=== PATIENT | female | born 1980 | race Caucasian/White ===

== ENCOUNTER 2022-02-11 08:00 | Outpatient (RCR) | payer OTHER, SELFPAY ==
--- NOTE | 2022-02-11 10:10 | BH.SGPN.GN ---
Behaviors/Verbalizations/Mental Status: []Eye contact is good. Motor activity is appropriate. Appearance is casual. Speech is Appropriate. Mood is dysthymic. Affect is constricted. Thoughts are linear and logical. No evidence of psychosis. Client Response/Progress/Benefit: []Pt was an active participant in group discussion and activity. Attentive during psychoeducation on social stigma vs self-stigma. Pt was actively involved in interactive discussion on the question of What impacts how we define and view ourselves? Pt along with peers were able to identify several aspects that impact how we view ourselves which include: society, past experiences, upbringing, guilt over past actions, shame, what we tell ourselves, and actions. Pt reported internal stigma has kept her from setting boundaries and setting personal goals. Benefited from increased awareness of how mental health stigma can impact individuals and treatment. Plan is to continue in IOP to increase healthy coping, improve daily functioning and prevent decompensation.
--- NOTE | 2022-02-12 09:10 | BH.SGPN.GN ---
Behaviors/Verbalizations/Mental Status: []Pt alert and oriented, casually dressed and groomed. Eye contact good. Motor activity appropriate. Speech within normal limits. Affect congruent, mood depressed and anxious. Thoughts linear, logical, no signs of hallucinations or delusions. Reviewed pt?s symptom tracker, no risk for suicidal ideation, plan, or intent as of 02/12/22 Client Response/Progress/Benefit: []Pt responded well to session, attentive and willing to provide supportive feedback to group. Pt reports feeling stagnant this morning as she is just starting her mental health treatment process and is having a hard time challenging her negative mindset. Discussed feeling overwhelmed by the amount of work she feels she still needs to do in order to make the progress she feels is necessary for her mental health. Expressed trying to remind herself each morning to take things one day at a time and set small goals for herself. Shared accomplishing a small goal to take a shower and trim her nails yesterday which she identified as personal progress. Appeared to benefit from supportive group environment. Pt will continue IOP tx to promote self-care, improve application of healthy coping and thought challenge skills, as well as improve daily functioning. Narrative Note: []
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
[2022-02-12 12:07] VITALS: BP 102/48; PULSE 65
--- NOTE | 2022-02-12 12:17 | BH.DR.ITP ---
Initial Treatment Plan Patient Information Visit Information: ADMISSION DATE: EXPECTED LOS: 4-6 weeks Problems/Symptoms Problem #1:: Mood instability Symptom:: Sadness, low motivation, apathy, hopelessness, guilt, hypersomnia, low energy, decreased concentration, fleeting, passive suicidal ideation Problem #2:: Anxiety Symptom:: Worry, rumination, panic attacks, hypervigilance, avoidance, flashbacks, nightmares
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
--- NOTE | 2022-02-13 14:20 | BH.MTP ---
Master Treatment Plan - Patient Information Program Physician:: Dr. Sewell Primary Therapist:: Wendy Maradiaga, [facility] - Psychiatric Diagnoses Psychiatric Diagnoses:: 1. Bipolar 1 disorder, most recent episode depression, severe without psychosis. 2. Generalized anxiety disorder. 3. PTSD. 4. Marijuana use disorder. 5. Nicotine use disorder Diagnosis Code(s):: F31.4 - Estimated LOS Estimated LOS (in weeks):: 6 Problem/Goal #1 - Problem/Goal #1 Stated Goal:: Client will increase mood stability, decrease depressive symptoms, and passive thoughts of due to Bipolar I disorder through Intensive Outpatient Program. Description of Barriers: Potential treatment barriers include: distorted thoughts, limited support, financial stress, negative thought patterns, low motivation, apathy, and low energy. Functional Impact: The patient is a 41-year-old female who will be next month and who has a history of mood instability and was referred to the IOP program at [facility] by her psychiatrist due to worsening depression and anxiety. She has had trouble holding down jobs because she is overwhelmed and is afraid of running into her if she leaves the house to go to work. Since the got out of group home the patient has had increased fear and has a heart had a hard time leaving the house. Client endorses depressed mood with low motivation, apathy, anhedonia, low energy, decreased concentration, erratic appetite, wanting to sleep throughout day, and feelings of hopelessness and guilt. Client reports being a worrier by nature and has daily panic attacks. Client reports feeling suicidal thoughts but denies active SI, plan or intention to date. - Objectives Objective #1 Stated Objective: Client will learn and utilize 2-3 healthy coping strategies and identify at least 2-3 negative self-talk messages used to reinforce feelings of worthlessness and replace thoughts with positive messages.?? Interventions: Therapist and group will utilize CBT techniques to assist client with understanding the connection between thoughts, feelings and behaviors. Education will be provided on behavioral activation. Therapist will assist client in learning internal coping strategies to manage depressive symptoms, along with helping client identify triggers. Through group and individual sessions client will identify distorted, negative beliefs about self and replace with more realistic, affirmative messages. Discharge Criteria: Client will have achieved this goal when can verbalize and has practiced at least 2 healthy coping strategies that successfully manage depressive symptoms. Client will also be able to verbalize at least 2 negative self-talk messages and effectively replace those thoughts with affirmative messages. Target Date: 03/25/22 Review Date: 03/12/22 Objective #2 Stated Objective: Pt will decrease depressive symptoms AEB pt?s score on the DSM 5 cross-cutting measure and improve pt?s daily functioning. Interventions: Through groups and individual therapy, pt will be provided with education on cognitive distortions, mistaken beliefs, and identifying and combating negative self-talk. Therapist will assist pt with getting back into the activities she once enjoyed as well as increasing healthy coping strategies. Discharge Criteria: Pt will have met this goal when pt?s score on the DSM 5 cross cutting measure for depression has been decreased and per pt?s report daily functioning has improved. Target Date: 03/25/22 Review Date: 03/12/22 Problem/Goal #2 - Problem/Goal #2 Stated Goal:: Client will reduce overall frequency, intensity, and duration of the anxiety so that daily functioning is not impaired.? Description of Barriers: Potential treatment barriers include: distorted thoughts, limited support, financial stress, negative thought patterns, low motivation, apathy, and low energy. Functional Impact: The patient is a 41-year-old female who will be next month and who has a history of mood instability and was referred to the IOP program at [facility] by her psychiatrist due to worsening depression and anxiety. She has had trouble holding down jobs because she is overwhelmed and is afraid of running into her if she leaves the house to go to work. Since the got out of group home the patient has had increased fear and has a heart had a hard time leaving the house. Client endorses depressed mood with low motivation, apathy, anhedonia, low energy, decreased concentration, erratic appetite, wanting to sleep throughout day, and feelings of hopelessness and guilt. Client reports being a worrier by nature and has daily panic attacks. Client reports feeling suicidal thoughts but denies active SI, plan or intention to date. - Objectives Objective #1 Stated Objective: Client will learn and implement 2-3 calming skills to reduce overall anxiety and manage anxiety symptoms. Interventions: Therapist and group sessions will help client identify physiological warning signs of anxiety, increase awareness of thoughts that increase anxiety, and identify behaviors that reinforce anxious symptoms. Group and individual counseling will teach client calming skills to help manage anxious symptoms. Discharge Criteria: Client will have achieved this goal when can verbalize at least 2 calming skills and reports skills successfully help reduce anxious symptoms. Target Date: 03/25/22 Review Date: 03/12/22 Objective #2 Stated Objective: Pt will decrease anxious symptoms AEB pt?s score on the DSM 5 cross-cutting measure improve pt?s daily functioning. Interventions: Through groups and individual therapy, pt will be provided education about anxiety?s impact on body and common physiological reaction to anxiety. Therapist will teach pt appropriate breathing techniques and build healthy coping skills to manage daily anxieties. Discharge Criteria: Pt will have met this goal when pt?s score on the DSM 5 cross cutting measure for anxiety has been decreased and per pt?s report daily functioning has improved. Target Date: 03/25/22 Review Date: 03/12/22
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
--- NOTE | 2022-02-18 09:05 | BH.SGPN.GN ---
Behaviors/Verbalizations/Mental Status: [] Eye contact is good. Motor activity is appropriate. Appearance is casual. Speech is Appropriate. Mood is euthymic. Affect is full. Thoughts are linear and logical. No evidence of psychosis. Reviewed daily check in sheet and no reports of suicidal ideations or intent. Client Response/Progress/Benefit: [] Pt was an active participant in group discussion. Attentive. Gave appropriate feedback. Emotion for today is excited. Daily symptom tracker notes 3/5 for depression/anxiety and 2/5 for anger. Pt was able to identify several mental health wins over the weekend. She worked on her goals to shower every day and read a book. I have showered 5 days in a row. She shared why these goals are beneficial to her mental health as she was not completing ADLs and would sleep throughout the day. She also is getting back to some positive self-care such as driving and listening to music. She believes that setting these daily small goals motivates her. She is utilizing opposite-action skills as well as thought reframing. Progress noted per pt report. Benefited from group support, encouragement, and feedback. Will continue in IOP to maintain safety, prevent decompensation, and improve functioning. Narrative Note: []
--- NOTE | 2022-02-18 10:10 | BH.SGPN.GN ---
Behaviors/Verbalizations/Mental Status: []Pt alert and oriented, neatly dressed and groomed. Eye contact good. Motor activity appropriate. Speech within normal limits. Affect congruent, mood euthymic. Thoughts linear, logical, no signs of hallucinations or delusions. Client Response/Progress/Benefit: []Pt was an engaged participant AEB pt listening attentively to others. Attentive during psychoeducation on communication styles. Assisted group with identifying barriers of effective communication which included: ?dropping hints,? texting, assumptions, yelling, and hurtful language. Pt identified they most often use passive-aggressive communication. Pt reports being passive-aggressive impacts pt by creating more conflict and pt's needs not getting met. Benefited from increased awareness of different communication barriers, styles, and the importance of communicating effectively to improve mental wellness. Will continue IOP tx to prevent decompensation, gain healthy coping skills, and reduce avoidance. Narrative Note: []
--- NOTE | 2022-02-19 10:10 | BH.SGPN.GN ---
Behaviors/Verbalizations/Mental Status: []Pt alert and oriented, casually dressed and groomed. Eye contact good. Motor activity appropriate. Speech within normal limits. Affect constricted, mood euthymic. Thoughts linear, logical, no signs of hallucinations or delusions. Client Response/Progress/Benefit: []Pt responded well to session AEB taking notes throughout and listening attentively to others. Pt was attentive throughout group activity identifying famous individuals and how they overcame failure to be successful. Pt helped group identify how fear of failure can impact mental health and relationships. Pt personally identified it can keep people in unhealthy relationships and feel stuck. Pt participated in experiential activity, working with group members to problem solve. Appeared to benefit from increased knowledge of fear of failure. Will continue IOP tx to increase emotional regulation skills, improve work-related functioning, and reduce negative thinking patterns. Narrative Note: []
--- NOTE | 2022-02-19 10:20 | BH.MDN_ITS ---
Multi-Disciplinary Note - Note 60-min Individual Time Started:: 09:00 Date: 02/19/22 Purpose of session/treatment goals addressed:: Purpose of session was to address goals 1 and 2 from MTP. Eye Contact:: Good Motor Activity:: Appropriate Appearance:: Casual Speech:: Appropriate Mood:: Euthymic, Anxious Affect:: Congruent Thoughts:: Linear, Logical, No evidence of hallucinations/delusions noted Staff Interventions:: CBT techniques, rapport building, strengths perspective, goal setting, taught coping skills Client Response:: Client reported she did accomplish goal of showering 5 of 7 days. Client stated she did find benefit to having a personal hygiene routine of showering, putting in contacts and brushing teeth. Client reported she did not accomplish goal of working on her raised garden bed. Client stated there were things that popped up over the weekend she forgot about and didn't have any time. Client reported she did talk with her neighbor and asked to borrow some garden tools. Client stated she did get a job at [employer] in which she starts next Thursday. Client reported she is feeling excited because she will be making money to help cover bills and gas. Client stated her schedule will be every Thursday, Thursday and Thursday from 4pm to close. Client reported she does feel anxious that she won't be able to keep up with the pace especially with her leg pain. Client stated having a set schedule she believes will be helpful. 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 Client stated she is hopeful this will be positive for her. Client reported her mood has slightly improved in the last week with slight improvement in motivation. Client stated she continues to struggle with getting house work done. Client reported she did make a list yesterday of chores to be done. Connected with strategy of chunking tasks into more manageable parts. Client stated her goal for the week is to nap every other day versus every day. Client reported she has been napping 3 hours everyday when feeling bored. Recognizes the napping gets in the way of accomplishing tasks and being active. Client reported she also wants to work on her raised garden bed. Risks/Concerns:: Denies suicidal ideation, plan or intention to date. future focused Progress Toward Goals/Plan:: Progress noted with client reporting improved mood and slight increase in her motivation. Client reported being able to accomplish chore of putting dishes away, taking out trash and cleaning out the litter box es. Client stated she'd like to decrease how much she is napping so she can be more productive and spend more time doing thing she enjoys like coloring outside. Client to continue IOP to increase healthy coping skills, challenge distorted thoughts and prevent decompensation. Time Stopped:: 10:05
--- NOTE | 2022-02-19 11:15 | BH.SGPN.GN ---
Behaviors/Verbalizations/Mental Status: []Pt alert and oriented, casually dressed and groomed. Eye contact good. Motor activity appropriate. Speech within normal limits. Affect congruent, mood euthymic. Thoughts linear, logical, no signs of hallucinations or delusions. Client Response/Progress/Benefit: []Pt responded well to session, engaged in the experiential activity and attentive throughout group processing. Pt reported fear of failure has kept pt from having relationships that are healthy, keeping a job, and following through with commitments. Pt completed fear of failure worksheet and was able to identify thoughts and behaviors that reinforce personal fear of failure including lack of boundaries, fear of vulnerability, not taking her meds, and avoidance. Pt participated in small group discussion regarding strategies to overcome fear of failure. Identified wanting to work on setting small boundaries and working on accepting small wins. Appeared to benefit from increased knowledge of strategies to combat fear of failure and gaining self-awareness. Pt will continue IOP tx to improve work-related functioning, increase self-confidence, and reduce intensity of symptoms. Narrative Note: []
--- NOTE | 2022-02-20 09:05 | BH.SGPN.GN ---
Behaviors/Verbalizations/Mental Status: [] Eye contact is good. Motor activity is appropriate. Appearance is casual. Speech is Appropriate. Mood is anxious. Affect is congruent. Thoughts are linear and logical. No evidence of psychosis. Reviewed daily check in sheet and no reports of suicidal ideations or intent. Client Response/Progress/Benefit: [] Pt was an active participant in group discussion. Attentive. Provided appropriate feedback. Emotion for today is overwhelmed. Daily symptom tracker shows 3/5 for anxiety and 2/5 for depression. Mental health win today is I made it here. She shared obstacles and struggles this AM to getting to [facility]. She is planning to start a job next week which in the past has been difficult due to MH. Increased anxiety recently due to onboarding issues with her new employer. She believes that she has set herself up for success with this job as it's conducive to her schedule and allows her time to care for daughter during the weekdays. She is fearful, excited, anxious, and overwhelmed with this significant changes. Difficult not to focus on past struggles with maintaining a job. She feels that her mental health is more stable this time around I'm doing OK and I' m feeling better. Progress noted per pt report. Benefited from group support, encouragement, and feedback. Will continue in IOP to prevent decompensation, increase healthy coping, and improve functioning. Narrative Note: []
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
== END 2022-02-20 23:59 ==
LOC: BHIOP 08:00
PROVIDERS: PCP Family Medicine; Referring Provider Psychiatry & Neurology Psychiatry; Visit Provider Psychiatry & Neurology Psychiatry
DX: F31.4 Bipolar disorder, current episode depressed, severe, without psychotic features (principal); F41.1 Generalized anxiety disorder; F43.10 Post-traumatic stress disorder, unspecified; F12.99 Cannabis use, unspecified with unspecified cannabis-induced disorder; F17.210 Nicotine dependence, cigarettes, uncomplicated; Z91.51 Personal history of suicidal behavior; Z79.899 Other long term (current) drug therapy
CPT/HCPCS: 90792; H2012; H2020; S9480; T1002; 90834; 90837

== ENCOUNTER 2022-02-21 07:26 | Outpatient (RCR) | payer OTHER, SELFPAY ==
[2022-02-21 00:50] VITALS: BP 102/48; PULSE 65
--- NOTE | 2022-02-25 09:05 | BH.SGPN.GN ---
Behaviors/Verbalizations/Mental Status: [] Eye contact is poor. Motor activity is appropriate. Appearance is casual. Speech is normal. Mood is depressed. Affect is flat. Thoughts are linear and logical. No evidence of psychosis. Reviewed daily check in sheet and no reports of suicidal ideations or intent. Client Response/Progress/Benefit: [] Pt was an active participant in group discussions. Attentive. Emotion for today is gloomy. Daily symptom tracker notes 3/5 for depression, anxiety, and irritability. Mental health win was getting here today Reports depression, low energy, and low motivation this AM. I wanted to go back home but I didn't. No specific trigger to worsening depression. Group provided feedback, support, and empathy. Discussion on the benefits of opposite action in times of depression and lack of motivation as sometime action can lead to motivation. Will continue in IOP to prevent decompensation, increase healthy coping strategies, and to stabilize mood. Narrative Note: []
--- NOTE | 2022-02-25 10:10 | BH.SGPN.GN ---
Behaviors/Verbalizations/Mental Status: []Client alert and oriented, casually dressed and groomed. Eye contact good. Motor activity appropriate. Speech within normal limits. Affect congruent, mood euthymic. Thoughts linear, logical, no signs of hallucinations or delusions. Client Response/Progress/Benefit: [] Client responded well to session AEB sharing and listening attentively to others. Client indicated struggle with utilizing supports due to feeling like a burden to others. Clinician provided psychoeducation on types of support including internal and external support, with client identifying co workers as possible supports. Client participated in experiential activity illustrating the importance of having multiple social supports. Client provided supportive feedback and problem solving throughout group activity. Client participated in group processing of the activity. Client appeared to benefit from increased knowledge of the benefits of social support and greater self-awareness. Will continue IOP treatment with possible discharge this week to continue increasing application of healthy coping skills and decreasing negative self-talk to improve daily functioning. Narrative Note: []
--- NOTE | 2022-02-25 11:10 | BH.SGPN.GN ---
Behaviors/Verbalizations/Mental Status: [] []Client alert and oriented, casually dressed and groomed. Eye contact good. Motor activity appropriate. Speech within normal limits. Affect congruent, mood euthymic and anxious. Thoughts linear, logical, no signs of hallucinations or delusions Client Response/Progress/Benefit: [] Client was an active participant throughout AEB contributing to discussion, providing personal examples, and taking notes. Client processed emotions she felt in the activity and how she coped in the moment with indicating high stress during group due to challenge of working together. She provided input during discussion on the types of support our supports can provide. Client was able to identify current support system and barriers that get in the way of using supports. Client stated she struggles most with emotinal and informational support with plans to find more resources to build on her supports.Connected impact this can have on her mental health. Client seemed to benefit from identifying the type of support she needs to work on improving. Client recommended to continue IOP to continue use of healthy coping, challenge distorted thoughts and prevent decompensation. Narrative Note: []
--- NOTE | 2022-02-26 09:00 | BH.SGPN.GN ---
Behaviors/Verbalizations/Mental Status: []Pt alert and oriented, casually dressed and groomed. Eye contact good. Motor activity appropriate. Speech within normal limits. Affect congruent, mood tired and euthymic. Thoughts linear, logical, no signs of hallucinations or delusions. Reviewed pt?s symptom tracker, no risk for suicidal ideation, plan, or intent as of 02/26/22 Client Response/Progress/Benefit: []Pt responded well to session, attentive and providing support. Pt reports feeling exhausted this morning due to having nightmares last night. Pt shared a positive is that I finally slept through the night but unfortunately the sleep was disrupted. Pt reports getting to IOP today is a win as pt was tired and wanted to lay in bed. Pt shared coming to group is helpful though, so pt is glad she used opposite action. Pt appeared to benefit from connecting with peers. Pt will continue IOP tx to promote mood stability, improve daily functioning, and reduce negative thinking patterns. Narrative Note: []
--- NOTE | 2022-02-26 10:10 | BH.SGPN.GN ---
Behaviors/Verbalizations/Mental Status: [] Client alert and oriented, neatly dressed and groomed. Eye contact good. Motor activity appropriate. Speech within normal limits. Affect congruent, mood euthymic. Thoughts linear, logical, no signs of hallucinations or delusions. Client Response/Progress/Benefit: [] Client was an active participant in group discussions. Attentive during psychoeducation on 4 types of conflict styles (Competing, Collaborating, Avoiding, and Accommodating). Worked with group to define conflict and identify how conflict is helpful. With peers identified barriers to addressing or managing conflict which included: fear of upsetting others, fear of the outcome, and feeling vulnerable. Client shared How politics can cause conflict and gave insight on pros and cons of each conflict resolution styles. Benefited from group due to increase insight and awareness of benefits to conflict, conflict styles, and obstacles to managing conflict. Will continue in IOP to prevent decompensation, gain healthier core beliefs, and increase overall functioning. Narrative Note: []
--- NOTE | 2022-02-26 11:15 | BH.SGPN.GN ---
Behaviors/Verbalizations/Mental Status: []Client alert and oriented, neatly dressed and groomed. Eye contact good. Motor activity appropriate. Speech within normal limits. Affect congruent, mood euthymic, Thoughts linear, logical, no signs of hallucinations or delusions. Client Response/Progress/Benefit: [] Client engaged in session AEB contributing to discussion and engaging in activity. Client did well to review current conflict style and its impact on mental health with identifying herself a cooperative in her conflict resolution style with indicating she had to get there from experiences in the past with communicating. Attentive and taking notes during discussion on strategies for more effectively managing conflict in personal life. client participated in activity and did well to be assertive and collaborating. client given handout on fair fighting rules. Appeared to benefit from gaining strategies to help client better manage conflict. Will continue IOP tx to reduce cognitive distortions and improve overall functioning. Narrative Note: []
--- NOTE | 2022-02-27 09:05 | BH.SGPN.GN ---
Behaviors/Verbalizations/Mental Status: [] Eye contact is good. Motor activity is appropriate. Appearance is casual. Speech is appropriate. Mood is depressed. Affect is flat. Thoughts are linear and logical. No evidence of psychosis. Reviewed daily check in sheet and no reports of suicidal ideations or intent. Client Response/Progress/Benefit: [] Pt was an active participant in group discussion. Attentive. Daily symptom tracker notes 3/5 for depression, anxiety, and anger. Emotion for today is regretful. Mental health wins include cooking dinner and challenging unrealistic expectations. She gave examples were she recently challenged her negative automatic thoughts. She is hopeful about her upcoming part-time job and is attempting reframe thoughts and focus on the benefits of having a job. She has struggles to maintain employment due to her mental health. Continues to report depression, negative thoughts, and anxiety. Continues to ruminate extensively mostly when triggered. Limited progress per pt report. Benefited from group support, encouragement, and feedback. Will continue in IOP to maintain safety, increase healthy coping, and to improve functioning. Narrative Note: []
--- NOTE | 2022-02-27 10:20 | BH.SGPN.GN ---
Behaviors/Verbalizations/Mental Status: [] Eye contact is good. Motor activity is appropriate. Appearance is casual. Speech is Appropriate. Mood is full. Affect is euthymic. Thoughts are linear and logical. No evidence of psychosis. Client Response/Progress/Benefit: [] Pt was an active participant in group discussion. Attentive during psychoeducation on Problem-Solving in the Moment Protocol. Participated in group experiential activity. Pt provided feedback during interactive group discussion in which pt and peers worked through an example of a problem (Managing Anxiety) in which they identified a goal (minimizing anxiety) and identified barriers. Barriers identified included lack of awareness, mental health stigma, distorted thinking, not having the tools/resources, and being afraid to fail. During the experiential activity pt worked with peers to problem solve using the Problem Solving in the Moment Protocol. Group was able to complete the activity and pt was able to practice in the moment problem-solving and make connections between problem-solving for activity and in real-life situations. Increased awareness of problem-solving strategies. Will continue in IOP to maintain safety, prevent decompensation, and improve functioning. Narrative Note: []
--- NOTE | 2022-02-27 11:20 | BH.SGPN.GN ---
Behaviors/Verbalizations/Mental Status: []Pt alert and oriented, casual dress, hygiene tended to. Eye contact good. Motor activity WNL. Speech appropriate rate and tone. Affect congruent, mood euthymic. Thoughts linear, logical, no signs of hallucinations or delusions. Client Response/Progress/Benefit: []Pt engaged in session as evidenced by pt listening to others and providing input throughout. Pt practiced in the activity and expressed feeling frustration and anxious, but pt was able to cope by listening and problem-solving with peers. Pt identified a goal pt wants to work on which is schedule 20 minutes a day for self-care. Pt?s barriers included boredom, other tasks, childcare, and negative thinking. Pt also identified steps she could take such as making a fun list, stretching, making a tentative to-do list, and giving herself positive self-talk every day. Pt seemed to benefit from learning about problem solving method and rehearsing problem-solving skills in the moment. Pt will continue IOP tx to promote mood stability, increase emotional regulation skills, and improve work-related functioning. Narrative Note: []
--- NOTE | 2022-02-28 15:29 | BH.MDN_ITS ---
Multi-Disciplinary Note - Note 45-min Individual Time Started:: 13:38 Date: 02/28/22 Purpose of session/treatment goals addressed:: Purpose of session was to address goals 1 and 2 from MTP. Eye Contact:: Good Motor Activity:: Appropriate Appearance:: Casual Speech:: Appropriate Mood:: Anxious Affect:: Congruent Thoughts:: Linear, Logical, No evidence of hallucinations/delusions noted Staff Interventions:: thought challenging, CBT techniques, mindfulness skills, strengths perspective, taught coping skills Client Response:: Client reported she is having worries that she won't be able to maintain her new job that she starts today. Client stated started to have anxious thoughts a few days ago that this new job will be too much. Client reported she's worried her pain will be too much to handle, especially since she is working 3 days in a row. Client receptive to working with therapist to challenge negative and anxious thoughts. Client agreed anxiety can make a situation worse before even get to the stressor. Client stated the reasons she wants a job is to help with financial issues which would help decrease stress. Discussed strategies can use while at work to manage her mood. Discussed importance of self-care following her shift and relaxation during days she is off. Client reported this morning she used her anxiety for good by focusing on being productive. Client stated she got her dishes done, couple loads of laundry, and cleaned litter boxes. Client reported felt positive to be able to accomplish some things. Client reported she has been decreasing how much she naps recently. Client expressed sadness that she recently had a relationship end and is missing that connection. Client agreed increasing social support would be helpful. Client agreed with therapist getting back into journaling can be helpfu l to manage anxious thoughts. Client Risks/Concerns:: Denies suicidal ideation, plan or intention to date. future focused. children identified as protective factor. Progress Toward Goals/Plan:: Client noted increased anxiety due to starting new job tonight. Progress noted with client being able to be productive despite feeling anxious today. Client also reporting decreased napping to decrease avoidance. Client having increased anxious thoughts about not being able to succeed at her new job this weekend. Client open to challenging distorted thou ghts and reviewed skills that can help her manage in the moment. Client to continue IOP to increase healthy coping, challenge distorted thoughts and prevent decompensation. Time Stopped:: 14:28
--- NOTE | 2022-03-04 09:05 | BH.SGPN.GN ---
Behaviors/Verbalizations/Mental Status: [] Eye contact is good. Motor activity is appropriate. Appearance is casual. Speech is Appropriate. Mood is depressed. Affect is flat. Thoughts are linear and logical. No evidence of psychosis. Reviewed daily check in sheet and pt reports 1/5 for suicidal ideations and 0/5 for intent. Client Response/Progress/Benefit: [] Pt participated at times during the group discussion. Attentive. Daily symptom tracker notes 3/5 for anxiety/depression. Emotion for today is excited mainly due to plans to go to an amusement park with daughter this afternoon. [employer] was starting her job this weekend and making it through 3 days. I'm not sure how long this will last. She talked about the mental health and physical obstacles that she encountered while working stating I pushed through it. Benefited from group support, encouragement, and feedback. Will continue in IOP to maintain safety, increase healthy coping, and improve functioning. Narrative Note: []
--- NOTE | 2022-03-04 10:15 | BH.SGPN.GN ---
Behaviors/Verbalizations/Mental Status: [] Eye contact is good. Motor activity is appropriate. Appearance is casual. Speech is Appropriate. Mood is depressed. Affect is full. Thoughts are linear and logical. No evidence of psychosis. Client Response/Progress/Benefit: [] Pt was an active participant in group discussions. Attentive during psychoeducation. Participated in experiential activity. Pt participated in interactive discussion on the consequences of unhealthy expression of emotions. Pt along with peers identified several consequences which included; judgement from others, can push people away, people will keep information from us for fear we cannot handle it, we are perceived as angry or crazy, impacts our ability to effectively communicate. Pt also participated in interactive discussion on common potholes to effectively communicating which included; not focusing on topic at hand, too many issues/concerns at once, assumptions, jumping to conclusions, sarcasm, listening only to respond, and mental health struggles. Pt was able to relate and make connections between the experiential activity and the overall topic. Benefited from increased awareness of how stress and emotions can impact one's ability to communicate. Will continue in IOP to maintain safety, prevent decompensation, increase coping skills, and improve functioning. Narrative Note: []
--- NOTE | 2022-03-04 11:10 | BH.SGPN.GN ---
Behaviors/Verbalizations/Mental Status: []Pt alert and oriented, neatly dressed and groomed. Eye contact good. Motor activity appropriate. Speech within normal limits. Affect congruent, mood anxious. Thoughts linear, logical, no signs of hallucinations or delusions. Client Response/Progress/Benefit: []Pt engaged in session AEB client listening attentively to peers and providing input. Attentive during psychoeducation on 4 zones of regulation. Pt able to identify feelings and behaviors for each zone. Pt identified coping skills one can use to support self in each zone. Pt stated belief that pt is in the yellow zone today as pt feels anxious, excited, and nervous. Pt reports practicing grounding skills and looking into ASMR will help pt manage emotions today. Benefited from increased education on zones of regulation or stages of alertness for emotions and healthy coping skills to use for each zone. Pt will continue IOP tx to improve work-related functioning, improve interpersonal effectiveness skills, and increase application of healthy coping skills. Narrative Note: []
--- NOTE | 2022-03-05 09:00 | BH.SGPN.GN ---
Behaviors/Verbalizations/Mental Status: [] Eye contact is good. Motor activity is appropriate. Appearance is casual. Speech is Appropriate. Mood is anxious. Affect is congruent. Thoughts are linear and logical. No evidence of psychosis. Reviewed daily check in sheet and pt reports 1/5 for suicidal thoughts, and 0/5 for intent. Client Response/Progress/Benefit: [] Pt was an active participant in group discussions. Attentive. Provided appropriate feedback. Emotion for today is anxious. Shared that she has been mopy and weepy all morning. Stated that her emotions crashed today. I'm just existing and taking up space. While venting to the group she was able to identify triggers and stressors which may be impacting her mood. When asked what she could do to help she stated coming here today. Urge to stay at home and sleep or isolate was strong. Utilized opposite action to get here today because I knew it would help. Benefited from group support, encouragement, and feedback. Will continue in IOP to maintain safety, prevent decompensation, and increase healthy coping. Narrative Note: []
--- NOTE | 2022-03-05 10:05 | BH.SGPN.GN ---
Behaviors/Verbalizations/Mental Status: [] Client alert and oriented, casually dressed and groomed. Eye contact good. Motor activity appropriate. Speech within normal limits. Affect congruent, mood euthymic. Thoughts linear, logical, no signs of hallucinations or delusions. Client Response/Progress/Benefit: [] Client was an active participant in activity and taking notes during group discussion. Attentive during psychoeducation on coping skills, why people use unhealthy coping skills, and how to replace unhealthy coping skills. Client shared negative coping skills of shutting down,not doing self care, and sex. Benefited from increased understanding of unhealthy coping skills and the need for developing healthy internal and external coping skills. . Client will continue IOP tx to prevent decompensation,increase management depressive symptomatology, and increase overall functioning. Narrative Note: []
--- NOTE | 2022-03-05 11:05 | BH.SGPN.GN ---
Behaviors/Verbalizations/Mental Status: [] Client alert and oriented, neatly dressed and groomed. Eye contact fair to good. Motor activity appropriate. Speech within normal limits. Affect congruent, mood euthymic. Thoughts linear, logical, no signs of hallucinations or delusions. Client Response/Progress/Benefit: [] Client responded well to session AEB taking notes and providing input and examples throughout. Group discussed the different categories of coping skills which included distraction, emotional release, grounding, self-love, and thought challenging. Client created a coping skill menu identifying various skills to try in each category. Client's coping skill menu included: read more, journal, guided mediation, validating feelings, and practice affirmation. Appeared to benefit from increasing repertoire of healthy coping skills. Client will continue IOP tx to improve daily functioning, reduce negative thinking, and increase application of healthy coping skills. Narrative Note: []
--- NOTE | 2022-03-05 11:40 | PCM.BH.PN ---
Progress Note Progress Note: And history of Present Illness/Interim History: [] The patient is a 41-year-old female with a history of mood instability who is seen in follow-up at the [facility] IOP program. I last saw the patient 3 weeks ago and at that time her resulting dose was increased to 2 mg daily. The patient has been compliant with her medication and has been taking it every day and tolerating it well. According to the staff the patient has had consistent attendance and seems to be engaged in treatment. She feels she is learning valuable skills in the IOP program which are helping her deal with her mental health issues. She feels she is a little better but the patient says that the last few days and even the last few weeks she feels she is still up-and-down a lot. She has a new job at [employer] and has worked 3 days there but it was very hard for her to do this. She is getting more done at home but has a lot more to do. She is enjoying coloring now and denies complete anhedonia. She still feels hopeless at times but she states that she knows it will get better. She is having panic attacks maybe once a day now. She was able to go to [place] yesterday with her daughter and she did have some enjoyment while at [place] but she says that still she was not able to stay there very long. She feels that overall her mood is slightly better. She is still afraid of running into her and is still using her marijuana daily. She denies any suicidal ideation at all now. She does have occasional thoughts that she would not care if she did not wake up but she feels that overall she does want to live because her children are protective from her killing herself or wanting to . She denies plan for suicide, homicidal ideation, hallucinations, delusions or jayla symptoms. Current Psychiatric Medications: [] Resulting 2 mg p.o. daily (x3 weeks); Viibryd 40 mg p.o. daily; gabapentin 100 mg 3 times daily added recently for nerve pain by her outpatient provider. Mental Status Examination: [] The patient is a 41-year-old female who appears normal for stated age and is casually dressed and groomed with good hygiene. She is cooperative during the interview and is ambulatory with a normal gait. She has no psychomotor agitation or retardation. Eye contact is good and speech is normal rate and rhythm and fluent with no pressure. Mood is depressed. Affect is constricted. Thought process is goal-directed and organized. Thought content: There is evidence of some thoughts that of passive but there is no evidence of suicidal ideation, plan for suicide, homicidal ideation, hallucinations or delusions. Reality testing is intact. Intelligence is average or above. Judgment is intact. Insight: Limited but improving. Impulsivity: Moderate to high Diagnoses: [] 1. Bipolar 1 disorder, most recent episode depression, severe without psychosis (F31.4) 2. Generalized anxiety disorder 3. PTSD 4. Marijuana use disorder 5. Nicotine use disorder 6. Primary support, work and financial issues Plan: [] The patient will continue the IOP program at [facility] as the structure, support, education and group therapy will hopefully prevent worsening of the patient's symptoms which could require hospitalization. She felt safe during the interview and if it anytime she does not feel safe she will let us know or go to the emergency room. The risks, options, possible complications and side effects of the medications were again discussed with the patient and she understands accepts these. The patient will continue to try to decrease her marijuana use. Her resulting dose was increased to 3 mg p.o. daily due to the patient feeling that she has had minimal improvement in control of her moods and her depression. Prescription was sent in for this. She will continue to follow-up with her outpatient psychiatric and medical providers and I will see the patient in follow-up in 2 weeks.
--- NOTE | 2022-03-05 15:16 | BH.TPR ---
Treatment Plan Review Date of Admission:: 02/11/22 Date of Treatment Plan Review:: 03/05/22 Admitting Diagnoses:: 1. F31.4 Bipolar 1 disorder, most recent episode depression, severe without psychosis. 2. Generalized anxiety disorder. 3. PTSD. 4. Marijuana use disorder. 5. Nicotine use disorder Current Diagnoses:: 1. Bipolar 1 disorder, most recent episode depression, severe without psychosis (F31.4). 2. Generalized anxiety disorder. 3. PTSD. 4. Marijuana use disorder. 5. Nicotine use disorder Patient's Response to Treatment:: Client has responded well to session AEB client consistently attending IOP sessions, active participant group discussions and receptive during individual sessions. Status of Current Problems and Symptoms: Ongoing problems. Client believes she is learning valuable skills in the IOP program which are helping her deal with her mental health issues. She feels she is a little better but the patient says that the last few days and even the last few weeks she feels she is still up-and-down a lot. She has a new job at [employer] and has worked 3 days there but it was very hard for her to do this. She is getting more done at home but still not back to baseline. She is enjoying coloring now and denies complete anhedonia. She still feels hopeless at times but she states that she knows it will get better. She is having panic attacks maybe once a day now, which is a decrease compared to three weeks ago. She was able to go to [place] yesterday with her daughter and she did have some enjoyment while at [place] but she says that still she was not able to stay there very long. She feels that overall her mood is slightly better. She is still afraid of running into her and is still using her marijuana daily. Problem #1 Problem Name:: mood instability Status of Goals:: Obj 1 - not met. Client is able to identify healthy coping skills of art, journaling, getting out of the house, and opposite action. Client has increased awareness of her negative thought patterns but struggles with independently challenging distorted thoughts. Obj 2 - partially met. Client's DSM 5 scores at review indicate a 50% decrease in depressive symptoms. Client's jayla symptoms indicate a 33% increase in symptoms at review. Team Recommendations:: Team recommends client continue current goal and objectives to increase consistent use of skills and show stability. Problem #2 Problem Name:: Anxiety Status of Goals:: Obj 1 - partially met, ongoing work encouraged. Client is able to identify calming skills like belly breathing, paced breathing, coloring, 5 senses and other grounding tools. Client does struggle with using these skills in the moment. Obj 2 - partially met, ongoing work encouraged. Client's DSM 5 scores at review indicate a 18% decrease in anxiety. Client continuing to struggle with trauma triggers and hypervigilance since her soon to be ex- was released from [facility] in August. Client has upcoming divorce case in a couple weeks which also seems to be contributing to increased anxiety. Team Recommendations:: Team recommends client continue current goal and objectives to increase consistent use of skills and show stability. Focus on building grounding tools to help with trauma response when worries about seeing her soon to be ex-.
--- NOTE | 2022-03-06 09:01 | BH.SGPN.GN ---
Behaviors/Verbalizations/Mental Status: []Eye contact is fair. Motor activity is appropriate. Appearance is casual. Speech is Appropriate. Mood is dysthymic. Affect is congstricted. Thoughts are linear and logical. No evidence of psychosis. Reviewed daily check in sheet and no reports of suicidal ideations or intent. Client Response/Progress/Benefit: []Client responded well to session AEB listening attentively to others and providing feedback and thoughts to group. Client reported mental health positive as making it to IOP today despite having rough morning and wanting to stay home. Client stated using opposite action and reminding self of benefits of going to IOP as skills that helped her get to IOP today. Client stated additional positive as asking for help from her mom. Client stated stressor was having a rough morning. Seemed to benefit from peer support and expressing thoughts. Client to continue IOP to consistently apply healthy coping skills, challenge negative thoughts and prevent decompensation.
--- NOTE | 2022-03-06 10:10 | BH.SGPN.GN ---
Behaviors/Verbalizations/Mental Status: [] Eye contact is good. Motor activity is appropriate. Appearance is casual. Speech is Appropriate. Mood is depressed. Affect is full. Thoughts are linear and logical. No evidence of psychosis. Client Response/Progress/Benefit: [] Pt was an active participant in group discussion. Attentive during psychoeducation and participated in group activity. Participated in interactive group discussion on internal and external barriers to mental health progress. Group identified examples of internal barriers as; negative thoughts, anxiety, cognitive distortions, and past experiences. External barriers identified were toxic people, lack of support/resources, stressful work, and housing issues. Pt teresa a picture of her current reality which depicted her on a road with a lot of stressors. hanging over her including divorce and boredom. Feels stuck however more hopeful in the past few weeks. Her desired reality has her working from home, maintaining her boundaries, having support, and taking care of herself. Benefited from increased awareness of current barriers to progress as well as current/desired realities. Plan is to continue in IOP to maintain safety, prevent decompensation, increase healthy coping, and improve functioning. Narrative Note: []
--- NOTE | 2022-03-06 11:15 | BH.SGPN.GN ---
Behaviors/Verbalizations/Mental Status: []Pt alert and oriented, casually dressed and groomed. Eye contact good. Motor activity appropriate. Speech within normal limits. Affect constricted, mood anxious. Thoughts linear, logical, no signs of hallucinations or delusions. Client Response/Progress/Benefit: []Pt engaged during activity, encouraging peers and contributed as group brainstormed ideas on how to cope with internal barriers that keep pts stuck from moving towards goals. Able to identify barriers to desired reality. Identified barriers to current reality to include: isolation, not being present or enjoying things, and negative self-talk. Pt wants to work on overcoming the barrier of not being present and enjoying things by using grounding skills and challenging negative thinking. Benefited from group by identifying obstacles and solutions to desired reality.? Pt will continue IOP tx to reduce negative thinking patterns and self-sabotage, improve work-related functioning, and increase healthy support. Narrative Note: []
--- NOTE | 2022-03-11 09:00 | BH.SGPN.GN ---
Behaviors/Verbalizations/Mental Status: []Pt alert and oriented, casually dressed and groomed. Eye contact good, motor activity appropriate, speech WNL. Affect congruent, mood euthymic. Thoughts linear, logical, no signs of hallucinations or delusions. No risk reported on pt's daily symptom tracker. Client Response/Progress/Benefit: []Pt responded well to session, attentive and contributing ideas. Pt reports feeling hopeful this morning as pt quit her job at [employer] as pt felt like it was not a good fit and now pt will have more time to focus on her mental health. Pt shared she spent time with her mother over the weekend and spent time using opposite action. Pt also practiced mindfulness and gratitude to acknowledge the beauty around me. Pt appeared to benefit from reflecting on her positives and connecting with others. Pt will continue IOP tx to improve overall mood stability, reduce avoidance, and reduce the use of self-sabotaging behaviors. Narrative Note: []
--- NOTE | 2022-03-11 10:10 | BH.SGPN.GN ---
Behaviors/Verbalizations/Mental Status: [] Eye contact is good. Motor activity is appropriate. Appearance is casual. Speech is Appropriate. Mood is euthymic. Affect is congruent. Thoughts are linear and logical. No evidence of psychosis. Client Response/Progress/Benefit: [] Client responded well to session AEB sharing and listening attentively to others. Client participated in group discussion defining boundaries and why having healthy boundaries is important. Client shared importance of setting boundaries in the workplace as well. Client appeared to connect to psychoeducation on types of boundaries, including physical, emotional, and intellectual. Client listened attentively and nodding throughout discussion in which group members shared personal examples of different types of boundaries. Client appeared to benefit from increased knowledge of the types of boundaries and increased self-awareness of personal boundaries. Will continue IOP treatment to increase depression management skills and independent coping skills to improve daily functioning. Narrative Note: []
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
--- NOTE | 2022-03-12 09:00 | BH.SGPN.GN ---
Behaviors/Verbalizations/Mental Status: []Pt alert and oriented, casually dressed and groomed. Eye contact good. Motor activity appropriate. Speech within normal limits. Affect congruent, mood euthymic. Thoughts linear, logical, no signs of hallucinations or delusions. Reviewed pt?s symptom tracker, no risk for suicidal ideation, plan, or intent. Client Response/Progress/Benefit: []Client responded well to session AEB client listening attentively to peers and sharing thoughts and feelings. Client reported mental health positive as getting her side car mirror fixed yesterday which has decreased stress while driving. Client stated additional positive as getting to spend time with one of her friends yesterday. Client stated it felt positive and increased her mood to have social connection. Client reported continued stressor is money problems. Progress noted AEB client reporting improved mood. Client to continue IOP to increase consistent use of healthy coping skills, challenge negative thoughts and prevent decompensation. Narrative Note: []
--- NOTE | 2022-03-12 10:15 | BH.SGPN.GN ---
Behaviors/Verbalizations/Mental Status: []Pt alert and oriented, neatly dressed and groomed. Eye contact good. Motor activity appropriate. Speech within normal limits. Affect constricted, mood euthymic. Thoughts linear, logical, no signs of hallucinations or delusions. Client Response/Progress/Benefit: []Pt responded well to session AEB sharing and listening attentively to others. Pt participated in group discussion defining taking action and sharing leaving her soon to be ex- as a personal example. Group identified barriers to taking action, with examples of fear of failure and not wanting to feel uncomfortable. Clinician discussed how certain emotional states can color our perspective, describing it as ?what is driving your bus?. Pt identified what if thinking, poor boundaries, and isolation as driving their ?bus? most often.? Pt shared if they could gain control over these things pt would be get out of the house more and have less intrusive thinking. Appeared to benefit from increased self-awareness and knowledge regarding examples and barriers to taking action. Will continue IOP tx to improve work-related functioning, reduce avoidance, and increase application of healthy coping skills. Narrative Note: []
--- NOTE | 2022-03-12 11:15 | BH.SGPN.GN ---
Behaviors/Verbalizations/Mental Status: [] Eye contact is good. Motor activity is appropriate. Appearance is casual. Speech is Appropriate. Mood is depressed. Affect is congruent. Thoughts are linear and logical. No evidence of psychosis. Client Response/Progress/Benefit: [] Pt was an active participant in group discussion. Attentive during psychoeducation on the Zones of Change which included the comfort zone, learning zone, and danger zone. Pt along with peers participated in interactive discussion regarding behaviors, thoughts, and feelings associated with each zone. Participated in group activity in which they developed a plan to take action on something they wished to change. Pt chose to take action on raise my self-esteem in which he identified a SMART goal to tell myself that i love myself once daily in the mirror. Identified supports that he needed as post-it notes on mirror and in common areas. Benefited from increased self-aware of zones of change and developing an action plan. Will continue in IOP to maintain safety, increase healthy coping, and improve functioning. Narrative Note: []
--- NOTE | 2022-03-13 11:10 | BH.SGPN.GN ---
Behaviors/Verbalizations/Mental Status: []Client alert and oriented, casually dressed and groomed. Eye contact good. Motor activity appropriate. Speech within normal limits. Affect congruent, mood anxious. Thoughts linear, logical, no signs of hallucinations or delusions. Client Response/Progress/Benefit: []Pt was an active participant in group discussions and activities. Engaged in activity. Pt identified a SMART goal for the next week is to only allow self to nap for one hour per day and complete one self-care activity per day. Pt reported this would benefit her by giving herself more me time. Identified being tired, lack of sleep during nighttime, and sleeping through nap alarm as potential barriers to completing this goal. Pt able to identify several solutions that can help overcome identified barriers. Benefited from group by being able to utilize SMART educate to create a goal. Pt to continue IOP to increase consistent use of healthy coping skills, challenge negative thinking and prevent decompensation.
--- NOTE | 2022-03-18 09:00 | BH.SGPN.GN ---
Behaviors/Verbalizations/Mental Status: [] Client alert and oriented, casually dressed and groomed. Eye contact good. Motor activity appropriate. Speech within normal limits. Affect congruent, mood anxious Thoughts linear, logical, no signs of hallucinations or delusions. Reviewed client?s symptom tracker, no risk for suicidal ideation, plan, or intent as of 03/18/22 Client Response/Progress/Benefit: [ ] Client responded well to group by attentively listening and sharing with group. Client shared helpful coping techniques that she utilizes with the group. Reported that her emotion of the day was Mixed. Client went on to say she feels this way because she was at divorce court yesterday and everything went okay, but was a trigger for her and caused some uncomfortable feelings. Client identified ways she plans on coping and processing event. Client seemed to benefit from feedback from group member and validation on current feelings. They will continue IOP tx to decrease depressive symptomatology, increase positive self image, and increase overall functioning. Narrative Note: []
--- NOTE | 2022-03-18 10:05 | BH.SGPN.GN ---
Behaviors/Verbalizations/Mental Status: [] Eye contact is good. Motor activity is appropriate. Appearance is casual and grooming tended to. Speech is Appropriate. Mood is euthymic and anxious. Affect is congruent. Thoughts are linear and logical. No evidence of psychosis Client Response/Progress/Benefit: [] Client receptive of session, actively engaged throughout AEB taking notes and providing input and examples to discussion. Appeared to connect with group topic of cognitive distortions and the impact of thought patterns on mental health, coping behaviors, and relationships. Reflected that client personally tends to struggle with giving herself labels such as I am stupid when making misktakes. Progress noted in client report of improved insight and ability to combat distortions with alternative positive thoughts. Will continue IOP tx to further combat distorted thought patterns, increase utilization of coping skills, and improve overall functioning. Narrative Note: []
--- NOTE | 2022-03-18 11:10 | BH.SGPN.GN ---
Behaviors/Verbalizations/Mental Status: [] Eye contact is good. Motor activity is appropriate. Appearance is casual and grooming tended to. Speech is Appropriate. Mood is euthymic. Affect is congruent. Thoughts are linear and logical. No evidence of psychosis Client Response/Progress/Benefit: [] Client responded well to session AEB input and examples during group activity. Group discussed and practiced methods of reframing cognitive distortions. Client participated in identifying cognitive distortions when examples were provided. Client discussed in group the different strategies to overcome the distortions by practicing reframing. Client identified cognitive distortion that they used most often as magnification and minimization that contributes to her procrastinating. Client made plan to identify and challenge thoughts that contribute to it as homework over the next couple of days. Will continue tx to further promote mood stability, utilize coping skills, maintain safety, and improve overall functioning. Narrative Note: []
--- NOTE | 2022-03-20 09:05 | BH.SGPN.GN ---
Behaviors/Verbalizations/Mental Status: []Eye contact is good. Motor activity is appropriate. Appearance is casual. Speech is Appropriate. Mood is euthymic. Affect is constricted. Thoughts are linear and logical. No evidence of psychosis. Reviewed daily check in sheet and no reports of suicidal ideations or intent. Client Response/Progress/Benefit: []Client responded well to session AEB client listening attentively to others, sharing thoughts and feelings and providing feedback to educational video group watched. Client reported mental health positive as coming to IOP today because she was worried she didn't have enough gas to make it here. Paxton reported additional mental health positive as going to her outpatient therapy appointment yesterday. Client stated she is feeling some relief since knowing in a few months her divorce and having full custody will be officially complete. Client reported she is stressed that she has to wait for 3-6 months for the divorce and custody to be legally bound. Client connected with educational video about blame, providing feedback to group discussion. Appeared to benefit from peer support. Client to continue IOP to continue use of healthy coping skills, challenge distorted thoughts and prevent decompensation. Narrative Note: []
--- NOTE | 2022-03-20 10:15 | BH.SGPN.GN ---
Behaviors/Verbalizations/Mental Status: [] Eye contact is good. Motor activity is appropriate. Appearance is casual. Speech is Appropriate. Mood is depressed. Affect is flat. Thoughts are linear and logical. No evidence of psychosis Client Response/Progress/Benefit: [] Pt was an active participant in group discussions. Attentive during psychoeducation. Participated in small groups with peers. Group worked together to define self-care which resulted in an interactive discussion on the topic. Pt states its taking time our for you. Group also worked together to identify the benefits to self-care which included; increased self-worth, decreased depression/anxiety/stress/anger, increased resilience, increased motivation, improved relationships, and prevention of crisis/burnout. Group also identified common myths associated with self-care such as; others come first, I have to push through everything, I'm not worthy of it, I don't deserve it, it takes too much time, I should be doing something more productive, its too expensive, and it's just personal hygiene. Group then into small groups and began to challenge or bust these myths. Benefited from increased awareness of self-care, it's benefits, and also practice challenging myths/obstacles to utilizing self-care. Will continue in IOP to improve functioning, maintain gains, increase healthy coping, and prevent decompensation. Narrative Note: []
--- NOTE | 2022-03-20 11:15 | BH.SGPN.GN ---
Behaviors/Verbalizations/Mental Status: []Pt alert and oriented, casually dressed and groomed. Eye contact good. Motor activity appropriate. Speech within normal limits. Affect congruent, mood euthymic. Thoughts linear, logical, no signs of hallucinations or delusions. Client Response/Progress/Benefit: []Pt engaged participant AEB completing self-assessment worksheet and contributing input during discussion. Participated throughout group discussion on the various areas of self-care. Pt completed worksheet which identified current self-care practices and what self-care activities pt wants to start using. Pt selected emotional self-care to begin practicing more consistently. Pt plans to do this by starting to complete a daily mood chart to help pt gain more awareness of triggers, stressors, and how her emotions change. Pt thinks this will give her more insight and ability to cope in the moment. Appeared to benefit from completing the self-care evaluation and gaining insights into current self-care practices, as well as identifying areas in which she would like to improve upon. Will continue IOP tx to further improve mood stability, increase work-related functioning, and improve boundary setting. Narrative Note: []
--- NOTE | 2022-03-20 15:33 | BH.MDN ---
Multi-Disciplinary Note - Note 30-min Individual Time Started:: 12:12 Date: 03/20/22 Purpose of session/treatment goals addressed:: Purpose of session was to address goals 1 and 2. Additional purpose was to discuss tentative discharge. Eye Contact:: Good Motor Activity:: Appropriate Appearance:: Casual Speech:: Appropriate Mood:: Euthymic, Anxious Affect:: Full Thoughts:: Linear, Logical, No evidence of hallucinations/delusions noted Staff Interventions:: motivational interviewing, CBT techniques, discharge planning, strengths perspective, taught coping skills Client Response:: Client reported she was granted a divorce and full custody of her children at her court case on Thursday. Client stated I want to be overwhelmed with excitement, but still feeling anxious until it's legally bound. Client reported her varnish finisher said it could take up to 3 months until the divorce and full custody are legally official. Client reported she does feel some relief that she knows the decision and doesn't have to feel like everything is out of her control. Client stated now that the court case is over she does have the desire to quit smoking. Client reported she knows quitting will help her physical health and decrease financial stress, however still anxious about it because she knows it will be hard to give up cigarettes. Client stated her nightmares have improved in the last few days. Stated she is no longer having dreams about traumatic events. Client reported she has been feeling slightly more motivated, however continues to struggle with cleaning her house. Client reported barriers to following through with goals of cleaning her house are physical pain and procrastination. Client reported she knows she can break down her cleaning into small chunks but struggles with following through. Client stated she does feel like she is ready to discharge from [facility] next week. Client reported she has learned a lot of information and skills since starting IOP and recognizes she just needs to use her skills. Client stated she is established with counseling, psychiatry and is waiting to schedule appointment with her new community case manager. Risks/Concerns:: Client denies suicidal ideation, plan or intention to date. future focused. Progress Toward Goals/Plan:: Client progress noted AEB client reporting improved mood, decreased nightmares, slightly increased motivation, and reports feeling ready to discharge from [facility]. Client does continue to struggle with utilizing skills on a consistent basis which could be attributed to her variable progress throughout IOP. Plan is for client to discharge from [facility] next week. Client already established with outpatient counseling, psychiatry, and is getting case management set up. Time Stopped:: 12:45
--- NOTE | 2022-03-26 13:43 | BH.MDN ---
Multi-Disciplinary Note - Note 45-min Individual Time Started:: 07:50 Date: 03/26/22 Purpose of session/treatment goals addressed:: Purpose of session was to discuss treatment progress, complete maintenance plan and solidify aftercare plans. Eye Contact:: Good Motor Activity:: Appropriate Appearance:: Casual Speech:: Appropriate Mood:: Dysthymic Affect:: Constricted Thoughts:: Linear, Logical, No evidence of hallucinations/delusions noted Staff Interventions:: thought challenging, CBT techniques, discharge planning, reviewed DSM-5, other - completed maintenance plan Client Response:: Client reported she has been struggling since Thursday when she found out her recent ex-boyfriend is having a child with another woman. Client stated finding this out made her feel extremely lonely and solidified that relationship is over. Client stated additional stressor is being told by her adult son that he wants to quit his job if things don't get better. Client reported this is extremely stressful because he financially supports the family at this time. Client stated she is also stressed because she needs to get a job but worried she won't be able to maintain employment. Discussed with therapist what kind of jobs would be best for her needs and what jobs (like food industry) would potentially set her up for failure. Client stated she plans to apply at [employer] that is close to her home. Client agreed going into the interview she should think about how many hours/days she can realistically work at this time. Client stated she does feel like she can manage her anxiety about seeing her ex- in public. Client stated although she will be anxious about being out of the house she knows it would be best for her to decrease isolation and potentially increase social support. When reviewing treatment progress she agreed she made more treatment progress then what she reported on the DSM 5 cross cutting measure. Client stated when she completed DSM 5 questionnaire yesterday she was not in a good place. Client stated she learned a lot in the program but felt like she was in a fog at times. Client reported she didn't get exactly what she wanted out of the program. Client stated treatment progress she has noted is being able to leave her house more often to go for walks and do other things, decrease in suicidal thoughts, and improved mood. Client worked with therapist to complete maintenance plan in which she identified triggers, warning signs, self-care activities, and healthy coping skills. Risks/Concerns:: Client reports passive thoughts of like I wish I didn't wake up. Client stated these thoughts are fleeting and she is able to dismiss the thoughts much easier. Client denies thoughts of actually killing herself, denies plan or intent. Progress Toward Goals/Plan:: Client reporting regression in symptoms compared to last week. Client faced with several stressors this week which have resulted in a setback for client's mood. Client feeling increased loneliness. Client stated she still wants to discharge from IOP because she needs to get a job to decrease her financial stress. Client reports she has the tools we have provided and she just needs to use the skills. Client has struggled throughout IOP with implementing skills outside treatment environment. Mood has been dictated by external events. Client has appointment with outpatient therapist on 04/21/22 and sees her psychiatrist every 3 months. Client is waiting to hear back from immigration case worker to establish first appointment. Client has met maximum benefit from IOP and will discharge from IOP today. Time Stopped:: 08:40
== END 2022-03-23 23:59 ==
LOC: BHIOP 07:26
PROVIDERS: PCP Family Medicine; Referring Provider Psychiatry & Neurology Psychiatry; Visit Provider Psychiatry & Neurology Psychiatry
DX: F31.4 Bipolar disorder, current episode depressed, severe, without psychotic features (principal); F41.1 Generalized anxiety disorder; F43.10 Post-traumatic stress disorder, unspecified; F12.99 Cannabis use, unspecified with unspecified cannabis-induced disorder; F17.210 Nicotine dependence, cigarettes, uncomplicated; Z91.51 Personal history of suicidal behavior; Z79.899 Other long term (current) drug therapy
CPT/HCPCS: 99214; H2012; H2020; S9480; 90834; 90837

== ENCOUNTER 2022-03-24 07:36 | Outpatient (RCR) | payer OTHER, SELFPAY ==
[2022-03-24 00:36] VITALS: BP 102/48; PULSE 65
--- NOTE | 2022-03-25 09:05 | BH.SGPN.GN ---
Behaviors/Verbalizations/Mental Status: [] Eye contact is good. Motor activity is appropriate. Appearance is disheveled. Speech is Appropriate. Mood is depressed. Affect is flat. Thoughts are linear and logical. No evidence of psychosis. Reviewed daily check in sheet and no reports of suicidal ideations or intent. Client Response/Progress/Benefit: [] Pt participated when prompted. Attentive. Tearful at times. Daily symptom tracker notes 10/26 for depression and anxiety. Shared with the group that it's been tough . Shared her current struggles and how they have impacted her mental health. States I feel alone. Her mental health win is that I made it here today. Low motivation and hopelessness. Anhedonia. Difficulty implementing skills due to current mental state. Group was supportive and offered feedback and encouragement which was beneficial. Regression noted per pt report. Will continue in IOP to prevent decompensation, encouragement skills use, and to maintain safety. Narrative Note: []
--- NOTE | 2022-03-25 10:10 | BH.SGPN.GN ---
Behaviors/Verbalizations/Mental Status: []Client alert and oriented, casually dressed and groomed. Eye contact fair. Motor activity appropriate. Speech within normal limits. Affect flat, mood dysthymic. Thoughts linear, logical, no signs of hallucinations or delusions. Client Response/Progress/Benefit: []Client was a semi-engaged participant AEB contributing to discussion at times, appeared to listen to others, and participated in activity. Connected with the topic of pitfalls and listened to group discussion on barriers that prevent from choosing a healthier path to mental wellness. Group worked together to identify examples of personal pitfalls which included; resentment/anger, stigma, shutting down, low motivation, making excuses, denial, distortions, and unhealthy coping. Client identified stuck in mindset as good as it's going to get, too many boundaries, and disqualifying positives as personal pitfalls that have inhibited progress in the past. Client benefited from group as she learned to better identify potential barriers to improving mental health symptoms. Client will continue IOP tx to challenge negative thought patterns, increase consistent use of healthy coping skills and prevent decompensation.
--- NOTE | 2022-03-25 11:15 | BH.SGPN.GN ---
Behaviors/Verbalizations/Mental Status: []Pt alert and oriented, neatly dressed and groomed. Eye contact good. Motor activity appropriate. Speech within normal limits. Affect constricted, mood irritable and low. Thoughts linear, logical, no signs of hallucinations or delusions Client Response/Progress/Benefit: []Pt receptive of session, engaged throughout AEB pt actively listening and contributing to discussion, as well as taking notes.? Pt participated in the experiential activity and admitted that her perspective was negative today, so pt was not confident the group would succeed. Pt and group processed how the emotions and perspective of the group impacted the activity. Group worked together to identify different coping skills to help manage pitfalls. Pt identified pitfalls they struggle with and shared wanting to work on keeping track of her wins by starting an accomplishment journal. Benefited from identifying personal pitfalls and strategies to overcome these pitfalls. Pt's progress appears to be variable based on the day/week as pt was reporting improved functioning and mood last week, but this week pt feels depressed and unmotivated. Pt is scheduled to discharge this week based on pt and therapist discussion. Narrative Note: []
--- NOTE | 2022-03-26 10:10 | BH.SGPN.GN ---
Behaviors/Verbalizations/Mental Status: []Client alert and oriented, casually dressed and groomed. Eye contact good. Motor activity appropriate. Speech within normal limits. Affect constricted, mood dysthymic. Thoughts linear, logical, no signs of hallucinations or delusions. Client Response/Progress/Benefit: []Client receptive to session AEB contributing to discussion and listening attentively to others. Taking notes. Worked with group to brainstorm the positive and negative aspects of stress on physical and mental health. Group did well to identify the benefits of stress as well as the impact of distress on performance and mental health. Client identified their personal top stressors as: needing a job, money issues, and daughter's health issues. Client reports when the stress overflows client reacts with either doing too much or avoiding everything. Client seemed to benefit from increased awareness of current stressors and impact stress has on mental health. Client has reached maximum benefit from IOP and will discharge from IOP today.
--- NOTE | 2022-03-26 11:24 | PCM.BH.PN_ITS ---
Progress Note Progress Note: History of Present Illness/Interim History: [] The patient is a 41-year-old female with a history of mood instability with depression who is seen in follow-up at the [facility] IOP program. I last saw the patient 3 weeks ago and at that time the result he was increased to 3 mg p.o. daily. The patient is tolerating the medication well and feels that overall the dose increase has benefited her. She has been consistent and engaged in her IOP attendance and participation and feels she has benefited from learning valuable skills to help with her mental health issues. Her mood had improved but she has had a setback this week with some ongoing stressors. She found out that her boyfriend who she recently broke up with his having a baby with his new girlfriend and so she feels lonely and that she will definitely not be going back to that boyfriend. She is disappointed in this. Her divorce is almost final but she does not feel she will get any support from her ex-. She is looking for a new job because the [employer] job did not work with the IOP program on a scheduling basis. Now that she is finishing the IOP program she will look for a job to help with the financial stress. She misses having support from a partner. She has had a little bit of a increase in her anxiety and PTSD nightmares this week due to the divorce and boyfriend issues. However overall she has been trending upward and improving overall her symptoms. She denies any passive thoughts that she would not care if she . She denies suicidal ideation, plan for suicide, homicidal ideation, hallucinations or delusions. She is still feeling hopelessness at times in the past few days due to the ongoing stressors. Panic attacks have decreased to several times a week depending on what she attempts to do. She is having an easier time leaving the house and states that she has been trying to walk with her daughter and she has done treadmill on her own for exercise. She has decreased her marijuana use to once a day which is less than before when she was using it several times a day. Current Psychiatric Medications: [] Rexulti 3 mg p.o. daily (x6 weeks); Viibryd 40 mg p.o. daily; gabapentin 100 mg once daily for nerve pain Mental Status Examination: [] The patient is a 41-year-old female who is overweight and appears normal for stated age and is casually dressed and groomed with good hygiene. She is cooperative and pleasant during the interview. She is ambulatory with a normal gait. She has no psychomotor agitation or retardation. Eye contact is good and speech is normal rate and rhythm and fluent with no pressure. Mood is mildly depressed. Affect is full and normal. Thought process is goal-directed and organized. Thought content: There is no evidence of thought passive thoughts of , suicidal ideation, plan for suicide, homicidal ideation, hallucinations or delusions. Reality testing is intact. Intelligence is average or above. Judgment is intact. Insight is fair to good. Impulsivity is low to moderate. Diagnoses: [] 1. Bipolar 1 disorder, most recent episode depression, severe without psychosis (F31.4); resolving 2. Generalized anxiety disorder 3. PTSD 4. Marijuana use disorder 5. Nicotine use disorder Plan: [] The patient will be discharged soon from the [facility] program as she has improved in her symptoms and stability and has learned valuable skills that have helped deal with her mental health issues. She felt safe during the interview and if it anytime she does not feel safe she will let us know or go to the emergency room. The risks, options, possible complications and side effects were again reviewed with the patient and she understands and accepts these. No medication changes were made today. The patient says she does not need refills as she has enough to get to her next appointment with her outpatient provider. She will continue to follow-up with her outpatient psychiatric and medical providers.
== END 2022-03-26 13:02 | disposition home or self-care (01) ==
LOC: BHIOP 07:36
PROVIDERS: PCP Family Medicine; Referring Provider Psychiatry & Neurology Psychiatry; Visit Provider Psychiatry & Neurology Psychiatry
DX: F31.4 Bipolar disorder, current episode depressed, severe, without psychotic features (principal); F41.1 Generalized anxiety disorder; F43.10 Post-traumatic stress disorder, unspecified; F12.99 Cannabis use, unspecified with unspecified cannabis-induced disorder; F17.210 Nicotine dependence, cigarettes, uncomplicated; Z91.51 Personal history of suicidal behavior; Z79.899 Other long term (current) drug therapy
CPT/HCPCS: 99213; H2012; H2020; S9480; 90834